=== PATIENT | female | born 1955 | race Caucasian/White ===

== ENCOUNTER → 2019-03-03 | Outpatient (CLI) | payer MEDICARE, OTHER, SELFPAY | PROVIDERS: PCP Internal Medicine; Visit Provider Internal Medicine | DX: Z13.6 Encounter for screening for cardiovascular disorders (principal) | CPT/HCPCS: 76706 ==

== ENCOUNTER 2022-03-08 11:36 | Outpatient (CLI) | payer MEDICARE, OTHER, SELFPAY ==
[2022-03-08 20:18] LABS: Alanine Aminotransferase 29 U/L (6-35); Albumin Level 4.7 g/dL (3.5-5.1); Alkaline Phosphatase 56 U/L (38-126); Anion Gap 13 mmol/L (8-16); Aspartate Amino Transferase 52 U/L (14-36); Bilirubin,Total 0.9 mg/dL (0.2-1.3); Blood Urea Nitrogen 19 mg/dL (7-17); Calcium 9.4 mg/dL (8.4-10.2); Carbon Dioxide 29 mmol/L (22-30); Chloride 95 mmol/L (98-107); Cholesterol 223 mg/dL (0-200); Estimated Glomerular Filt Rate > 60; Glucose 84 mg/dL (65-110); HDL Direct 74 mg/dL; Potassium 3.3 mmol/L (3.4-5.0); Sodium 137 mmol/L (137-145); Triglycerides 60 mg/dL (<150)
[2022-03-08 20:29] LABS: LDL Cholesterol Direct 101 mg/dL
== END 2022-03-08 11:37 | disposition home or self-care (01) ==
PROVIDERS: PCP Family Medicine; Visit Provider Family Medicine
DX: I10 Essential (primary) hypertension (principal); Z13.220 Encounter for screening for lipoid disorders
CPT/HCPCS: 36415; 80053; 80061

== ENCOUNTER 2022-04-11 09:41 | Outpatient (CLI) | payer MEDICARE, OTHER, SELFPAY ==
[2022-04-11 19:12] LABS: Anion Gap 11 mmol/L (8-16); Blood Urea Nitrogen 19 mg/dL (7-17); Calcium 8.8 mg/dL (8.4-10.2); Carbon Dioxide 25 mmol/L (22-30); Chloride 94 mmol/L (98-107); Estimated Glomerular Filt Rate > 60; Glucose 92 mg/dL (65-110); Potassium 3.4 mmol/L (3.4-5.0); Sodium 130 mmol/L (137-145)
== END 2022-04-11 09:42 | disposition home or self-care (01) ==
LOC: ANHGOSHLAB 09:46
PROVIDERS: PCP Family Medicine; Visit Provider Family Medicine
DX: I10 Essential (primary) hypertension (principal)
CPT/HCPCS: 36415; 80048

== ENCOUNTER 2022-04-27 09:43 | Outpatient (CLI) | payer MEDICARE, OTHER, SELFPAY ==
[2022-04-27 17:46] LABS: Anion Gap 9 mmol/L (8-16); Blood Urea Nitrogen 25 mg/dL (7-17); Calcium 9.1 mg/dL (8.4-10.2); Carbon Dioxide 30 mmol/L (22-30); Chloride 100 mmol/L (98-107); Estimated Glomerular Filt Rate > 60; Glucose 95 mg/dL (65-110); Potassium 3.5 mmol/L (3.4-5.0); Sodium 139 mmol/L (137-145)
== END 2022-04-27 09:44 | disposition home or self-care (01) ==
LOC: ANHGOSHLAB 09:45
PROVIDERS: PCP Family Medicine; Visit Provider Family Medicine
DX: I10 Essential (primary) hypertension (principal)
CPT/HCPCS: 36415; 80048

== ENCOUNTER 2024-01-29 01:08 | Day surgery (SDC) | payer MEDICARE, OTHER, SELFPAY ==
[2023-06-21 13:15] VITALS: BMI 23.6
--- NOTE | 2023-07-13 13:30 | P.HP_ITS ---
History of Present Illness History of Present Illness Consent: Risks, benefits, and alternatives have been discussed and questions answered. Patient agrees to proceed with procedure. Chief complaint: neoplasm screening Narrative: Wendy Lockwood is a 68 year old female Who was referred for colon cancer screening. [facility] Family History Family History Father Family history of congestive heart failure Patient's father is Social History Social History Smoking status: Never smoker Second hand tobacco smoke exposure: No Alcohol intake: current Drinks per week: 5 Substance use: never Substance use type: does not use Living arrangements: with family Spiritual care concerns: No Meds Home Medications and Allergies Home Medications Medication Instructions Recorded Confirmed Type meloxicam 15 mg tablet 15 mg PO DAILY 03/08/22 06/21/23 History hydrochlorothiazide 25 mg tablet 25 mg PO DAILY #90 tabs 06/07/22 06/21/23 Rx Allergies Allergy/AdvReac Type Severity Reaction Status Date / Time dog dander Allergy Mild Sneezing Verified 06/21/23 13:14 house dust Allergy Mild Sneezing Verified 06/21/23 13:14 cat dander Allergy Unknown Sneezing Verified 06/21/23 13:14 Penicillins Allergy Unknown Unknown Verified 06/21/23 13:14 Assessment and Plan Assessment and plan (1) Colon cancer screening: Code(s): Z12.11 - Encounter for screening for malignant neoplasm of colon Status: Acute Assessment and Plan: Colonoscopy with possible biopsy or polypectomy or cautery or injection of substances.
[2023-09-23 09:57] VITALS: BMI 23.0
[2024-01-13 11:10] VITALS: BMI 22.6
[2024-01-29 06:54] VITALS: BP 128/71; PULSE 80; RESP 18; TEMP 36.2; O2SAT 99
[2024-01-29] MEDS: LACTATED RINGERS 1,000 ML 150 ML IV CONT (07:15)
--- NOTE | 2024-01-29 07:49 | WPDANESEPPF ---
Anes - Initial Pre Proc Eval Procedure: Operation Date: 01/29/24 08:00 Proposed Procedures p Screening Colonoscopy - Norm Sharma MD Date/Time: 01/29/24 07:49 Surgeon: Nrom Sharma MD Pre Op Diagnosis: neoplasm screening Patient Data Age: 68 Gender: F Height: 1.63 m Weight: 59.6 kg Last Vital Signs Temp 97.2 F L 01/29/24 06:54 Pulse 80 01/29/24 06:54 Resp 18 01/29/24 06:54 BP 128/71 01/29/24 06:54 Pulse Ox 99 01/29/24 06:54 O2 Del Method Room Air 01/29/24 06:54 Allergies Allergy/AdvReac Type Severity Reaction Status Date / Time dog dander Allergy Mild Sneezing Verified 01/29/24 06:53 house dust Allergy Mild Sneezing Verified 01/29/24 06:53 cat dander Allergy Unknown Sneezing Verified 01/29/24 06:53 Penicillins Allergy Unknown Unknown Verified 01/29/24 06:53 Home Medications Medication Instructions Recorded Confirmed Type meloxicam 15 mg tablet 15 mg PO DAILY 03/08/22 01/29/24 History hydrochlorothiazide 25 mg tablet 25 mg PO DAILY #90 tabs 11/29/23 01/29/24 Rx Patient hx anesthesia problems: post op nausea/vomiting Family hx anesthesia problems: none Results Review: All pre-operative results and documents have been reviewed as part of the pre-operative evaluation. [facility] Family History Family History Father Family history of congestive heart failure Patient's father is Social History Social History Smoking status: Never smoker Second hand tobacco smoke exposure: No Alcohol intake: current Drinks per week: 4 Alcohol use details: Socially Substance use: never Substance use type: does not use Do You Feel Safe in your Home?: Yes Lack of Transportation: No Lack of Food: Never True Current Housing: I Have Housing Concerned About Future Housing: No Difficulty Paying Gas/Electric Bills: No Difficulty Paying for Meds: No Currently Unemployed: No Education: Bachelor's Degree Difficulty w/ Childcare or Family Care: No Living arrangements: with family Additional living arrangements comments: With sp Spiritual care concerns: No Agree to blood products: Yes Anes - Eval Final PreProcedure Day of Procedure 01/29/24 07:49 Patient weight: normal Heart: regular rate and rhythm Lungs: clear to auscultation Airway: Mallampati scale class II Neurological: alert and oriented Last oral intake: >/= 8 hours ASA classification: II Emergent: no Anesthetic plan: proceed Anesthesia type and monitoring: general GIVS and standard monitoring Results Review: All pre-operative results and documents have been reviewed as part of the pre-operative evaluation. Informed Consent: The patient's anesthetic plan and its attendant risks and benefits were discussed with the patient/family/POA. Questions were solicited and answers provided to the satisfaction of the patient/family/POA.
--- NOTE | 2024-01-29 07:52 | PM.HPGS ---
History of Present Illness History of Present Illness Consent: Risks, benefits, and alternatives have been discussed and questions answered. Patient agrees to proceed with procedure. Chief complaint: neoplasm screening Narrative: Wendy Lockwood is a 68 year old female here for screening colonoscopy, last one 10 years ago Review of Systems Review of Systems: All systems reviewed & are unremarkable except as noted in HPI and below PMFSH Family History Family History Father Family history of congestive heart failure Patient's father is Social History Social History Smoking status: Never smoker Second hand tobacco smoke exposure: No Alcohol intake: current Drinks per week: 4 Alcohol use details: Socially Substance use: never Substance use type: does not use Do You Feel Safe in your Home?: Yes Lack of Transportation: No Lack of Food: Never True Current Housing: I Have Housing Concerned About Future Housing: No Difficulty Paying Gas/Electric Bills: No Difficulty Paying for Meds: No Currently Unemployed: No Education: Bachelor's Degree Difficulty w/ Childcare or Family Care: No Living arrangements: with family Additional living arrangements comments: With sp Spiritual care concerns: No Agree to blood products: Yes Meds Home Medications and Allergies Home Medications Medication Instructions Recorded Confirmed Type meloxicam 15 mg tablet 15 mg PO DAILY 03/08/22 01/29/24 History hydrochlorothiazide 25 mg tablet 25 mg PO DAILY #90 tabs 11/29/23 01/29/24 Rx Allergies Allergy/AdvReac Type Severity Reaction Status Date / Time dog dander Allergy Mild Sneezing Verified 01/29/24 06:53 house dust Allergy Mild Sneezing Verified 01/29/24 06:53 cat dander Allergy Unknown Sneezing Verified 01/29/24 06:53 Penicillins Allergy Unknown Unknown Verified 01/29/24 06:53 Vital Signs Vital Signs - 24 hr 01/29/24 06:54 Temperature 97.2 F L Pulse Rate 80 Respiratory Rate 18 Blood Pressure 128/71 Pulse Oximetry 99 Oxygen Delivery Room Air Exam Const: General: comfortable and no acute distress HENMT: Face/Nose/Sinus: Normal nares present Eyes: General: appearance normal, both eyes and all related structures Neck: Neck: no JVD Resp: Auscultation: clear to auscultation bilaterally Cardio: Rate: regular rate Rhythm: regular rhythm GI: Inspection: non-distended GI Palp: Yes Soft to palpation Skin: General skin exam: normal color Neuro: General: gait normal Speech: normal speech Extrem: General: normal to inspection Psych: Mental Status: mental status grossly normal Assessment and Plan Assessment and plan (1) Colon cancer screening: Code(s): Z12.11 - Encounter for screening for malignant neoplasm of colon Status: Acute Assessment and Plan: colonoscopy
[2024-01-29 08:12] VITALS: BP 106/61; PULSE 71; RESP 22; O2SAT 97
[2024-01-29 08:22] VITALS: BP 104/57; PULSE 68; RESP 16; O2SAT 97
[2024-01-29 08:32] VITALS: BP 120/76; PULSE 67; RESP 22; O2SAT 98
== END 2024-01-29 08:41 | disposition home or self-care (01) ==
PROVIDERS: PCP Family Medicine; Visit Provider Internal Medicine Gastroenterology
PROC: 0DJD8ZZ Inspection of Lower Intestinal Tract, Via Natural or Artificial Opening Endoscopic (ICD-10-PCS; CPT 45378; principal; 2024-01-29 08:00)
DX: Z12.11 Encounter for screening for malignant neoplasm of colon (principal); K64.8 Other hemorrhoids
CPT/HCPCS: G0121; J2704; J7120

== ENCOUNTER 2024-05-21 10:49 | Outpatient (NON) | payer MEDICARE, OTHER, SELFPAY ==
[2024-05-21 12:51] LABS: IFOB Positive Control Positive; Immunochemical Fecal Occult Bl Negative (N)
== END 2024-05-21 10:50 | disposition home or self-care (01) ==
LOC: ANHGOSHLAB 10:51
PROVIDERS: PCP Family Medicine; Visit Provider Family Medicine
DX: D50.9 Iron deficiency anemia, unspecified (principal)
CPT/HCPCS: 82274

== ENCOUNTER 2024-08-13 07:00 | Outpatient (NON) | payer MEDICARE, OTHER, SELFPAY ==
--- OUTSIDE RECORDS SUMMARY | 2024-08-14 08:47 | XMS_ITS | Referral Summary ---
Author Organization [facility] Address [address] [place] [address] Care Team Providers Care Driver Courier Name Role Phone Gopal Julian DO Primary Care Provider [phone] Allergies Active Allergy Reactions Criticality Noted Date Comments Penicillins Hives Medium Medications hydroCHLOROthiaz nery (HYDRODIURIL) 25 mg tablet Take 25 mg by mouth daily 03/09/2022 Active meloxicam (MOBIC) 15 mg tablet Take 15 mg by mouth daily 04/02/2022 Active Active Problems Problem Noted Date Diagnosed Date Osteoarthritis 04/25/2022 Primary osteoarthritis of right knee 11/10/2021 History of left knee replacement 07/11/2021 Ovarian mass 05/11/2016 Pain of foot 10/06/2012 Immunizations Immunization Administration Dates Next Due Influenza, Quadrivalent, Hig h Dose, Preservative Free, Intrr 03/01/2022,03/01/2021,02/24/2020 Influenza, Trivalent, Adjuva nted, Intramuscular 03/25/2019 Pneumococcal Conjugate PCV 13 04/19/2019 Pneumococcal Polysaccharide PPV23 03/26/2020 Social History Tobacco Use Types Packs/Day Years Used Date Smoking Tobacco: Never Smokeless Tobacco: Never Tobacco Cessation:Counseling Given: Not Answered Personal Safety Answer Date Recorded Getting School Help Needed Not on file 06/08 Comments Unknown Sex and Gender Information Value Date Recorded Sex Assigned at Not on file 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 Gender Identity Not on file Sexual Orientation Not on file Last Filed Vital Signs Vital Sign Reading Time Taken Comments Blood Pressure 157/82 08/14/2022 2:08 PM CDT Pulse 70 08/14/2022 2:08 PM CDT Temperature - - Respiratory Rate - - Oxygen Saturation - - Inhaled Oxygen Concentration - - Weight 60.3 kg (133 lb) 08/14/2022 2:08 PM CDT Height 162.6 cm (5' 4 ) 08/14/2022 2:08 PM CDT Body Mass Index 22.83 08/14/2022 2:08 PM CDT Plan of Treatment Not on file Insurance MEDICARE [facility] [place] [address] Care Teams Driver Courier Relationship Specialty Start Date End Date Gopal Julian DO PCP - General Family Medicine 04/25/22
--- OUTSIDE RECORDS SUMMARY | 2024-08-14 08:47 | XMS_ITS | Continuity of Care Document ---
Author Organization [facility] Address [id number] [place] [address] [address] [place] [address] Phone Care Team Providers Care Chief Of Harbor Patrol Name Role Phone Carrasquillo OD, [place] Unavailable Unavailable Advance Directives Directive Yes / No Effective Date File Name No Information Encounters Encounter Description Practice Location Reason(s) For Visit Diagnoses Date Provider Providers Copied on Encounter [facility], [id number] [place] [address] [address], [place], [place], [id number], [place] tel:[phone] [facility] (formerly [facility]) No Information Mar-1 2-200 3 Carrasquillo OD [place]. [address] , [address], [place], [address], [place]. tel:[phone] Family History Family Member Type Diagnosis Age At Onset No Information Payers Payer name Insurance type Covered democrat ID Authoriza tion(s) No Information Social History Type Description Quantity Date Captured Comments Sex Female Smoking Status No Information Chief Complaint And Reason For Visit No Information Reason For Referral Reason For Referral No Information History Of Present Illness Encounter Date Complaint History Of Prese nt Illness No Information Functional Status Date Functional Assessmen t No Information Instructions Date Instruction Additional Infor mation No Information Assessments Type Assessment Date No Information Patient Care Teams Name Effective Dates (start - stop) Status Members No Information
--- OUTSIDE RECORDS SUMMARY | 2024-08-14 08:47 | XMS_ITS | Clinical Summary ---
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 Gender Identity Not on file Sexual Orientation Not on file Obstetrics History Last Filed Vital Signs Vital Sign Reading [...] 08/14/2022 2:08 PM CDT Plan of Treatment Health Maintenance Due Date Last Done Comments Breast Cancer Screening-Mammogram 1953 Colon Cancer Screening-Colonoscopy 1955 Depression Screening 1953 Fall Risk Assessment 1953 Hepatitis C Screening 1953 Osteoporosis Screening-Bone Density Scan 1953 DTaP/Tdap/Td Vaccine (1 - Tdap) 1964 Hepatitis B Screening 1971 Zoster Vaccine (1 of 2) 2003 Well Visit 65+ 2018 Covid-19 Vaccine (3 - 2023-2 5 season) 2024 08/06/2020, 07/15/2020 Influenza Vaccine (#1) 2024 2, 03/01/2021, 02/24/2020, Additional history exists Pneumococcal vaccine 65+ Completed 03/26/2020, 04/03 Insurance MEDICARE [facility] [place] [address] [place] [address] Care Teams Gate Shear Operator Relationship Specialty Start Date End Date Gopal Julian DO PCP - General Family Medicine 04/25/22
--- OUTSIDE RECORDS SUMMARY | 2024-08-14 08:47 | XMS_ITS | Encounter Summary ---
Author Organization [facility] Address [address] [place] [address] Care Team Providers Care Segment Producer Name Role Phone Gopal Julian DO Primary Care Provider [phone] Gopal Julian DO Primary Care Provider [phone] Encounter Details Date Type Department Care Team (Late st Contact Info) Description 07/05/2022 Lab Requisition [facility] [address] [place] [address] Luz Alarcon MD [address] [facility] [place] [address] Social History Tobacco Use Types Packs/Day Years Used Date Smoking Tobacco: Never Smokeless Tobacco: Never Alcohol Use Standard Drinks/Week Comments Yes 3 (1 standard drink = 0.6 oz pur e alcohol) social Sex and Gender Information Value Date Recorded Sex Assigned at Not on file Gender Identity Not on file Sexual Orientation Not on file documented as of this encounter Plan of Treatment Not on file documented as of this encounter Procedures Procedure Name Priority Date/Time Associated Diagnosis Comments DERMATOPATHOLOGY Routine 07/04/2022 12:0 0 AM SLUMBER ROOM ATTENDANT documented in this encounter Results * DERMATOPATHOLOGY (07/04/2022 12:00 AM SLUMBER ROOM ATTENDANT) Case Report Dermatopathology Report Case: [id number] Authorizing Provider: Luz Alarcon MD Collected: 07/04/2022 12:00 AM Ordering Location: [facility] Received: 07/05/2022 02:22 PM Pathologist: Antonette Caballero MD Specimen: Skin, right clavicular skin-Triangulation: 2 cm to sternal notch 3 4:30 PM [facility] Final Diagnosis Specimen A. SKIN, right clavicular skin-Triangulation: 2 cm to sternal notch: ULCER WITH SUPERFICIAL DERMAL NECROSIS, IMPETIGINIZED (L98.499) HEALING SKIN CHANGES (L90.5) (see microscopic description) 3 4:30 PM [facility] Clinical History 1.5 cm eroded plaque. Neoplasm of uncertain behavior vs SCC 3 4:30 PM [facility] Gross Description Specimen A: Received is one formalin filled container labeled with the patient's name and designated right clavicular skin-Triangulation: 2 cm to sternal notch. The specimen consists of a shave biopsy measuring 7x6x1 mm. Jar 0. 3 4:30 PM [facility] Microscopic Description Specimen A. SKIN, right clavicular skin-Triangulation: 2 cm to sternal notch: There is an ulcer, beneath which there are vascular proliferation, fibroblasts, and an edematous stroma. Bacteria are seen within the overlying inflamed serum scale crust. There is hyperplasia of the adjacent epidermis. Additional deeper sections were obtained and reviewed. COMMENT: Given the superficial nature of the biopsy specimen, a deeper dermal process cannot be excluded. 3 4:30 PM [facility] Disclaimer An external and internal positive and negative controls are appropriate for the histochemical, immunohistochemical and immunofluorescence stain(s) in this case (if any), except where stated explicitly. The performance characteristics of the stain(s) cited in this report were developed and its performance characteristic determined by the Dermatopathology Laboratory at [facility], directed by Dr. Pelon Gonzalez. These tests need not be, and therefore are not, approved by the [place] Food and Drug Administration. The tests are used for clinical purposes. Billing Codes Specimen Charges Stain Charges 67396 1 3 4:30 PM [facility] Embedded Images 3 4:30 PM [facility] Pathology/Cytolog y TISSUE SPECIMEN FROM SKIN / Unknown 07/04/2022 07/05/2022 2:22 PM SLUMBER ROOM ATTENDANT Luz Alarcon MD LAB - PATHOLOGY/[facility] DERMATOPATHOLOGY LABORATORY [facility] - Department of Dermatology [address], [address] [phone] documented in this encounter Visit Diagnoses Not on filedocumented in this encounter Care Teams Segment Producer Relationship Specialty Start Date End Date Gopal Julian DO [address] [place] [address] PCP - General Family Medicine 02/12/24 03/24/24 Gopal Julian DO [address] [place] [phone] PCP - General Family Medicine 03/25/24 documented as of this encounter
--- OUTSIDE RECORDS SUMMARY | 2024-08-14 08:47 | XMS_ITS | Referral Summary ---
Author Organization [facility] Address [address] [facility] [place] [address] Care Team Providers Care Emt/Dispatcher Name Role Phone Torstenmayco Gopal SOTO Primary Care Provider Source Comments [facility],non-owned Affiliates and Associated Physician Practices is amultiple site organization consisting of ambulatory clinics and hospital sitesin [place], [place], [place] and [place]. This disclosure is being madepursuant to the Care Everywhere program and may not contain all information available regarding this patient. Last updated 18.[facility] Encounters Date Type Department Care Team Description 06/30/[address], [address] [address] Winston Plunkett MD Refill Request 06/08/[address] [phone] Winston Plunkett MD Question from Last 3 Months Allergies Active Allergy Reactions Criticality Noted Date Comments Penicillins Itching Low 05/11/2016 Patient reports itching as a baby Medications * Be aware that medications may not be up to date on this document. Alwaysverify current medications with the patient. Medication Sig Dispensed Refills Start Date End Date Status hydroCHLOROthiazide (HYDRODIURIL) 25 MG tablet Take 1 (one) tablet by mouth once daily 05/04/2016 Active meloxicam (Mobic) 15 MG tablet Take 1 (one) tablet by mouth once daily 04/02/2022 Active acetaminophen (Tylenol) 500 MG capsule Take 2 (two) capsules by mouth 3 times daily Take for ten days then as needed. 04/01/2024 Active omeprazole (PriLOSEC) 20 MG capsule Take 1 (one) capsule by mouth daily before breakfast for 42 days 42 capsule 04/01/2024 Active ondansetron (Zofran) 4 MG tablet Take 1 (one) tablet by mouth every 6 hours as needed for Nausea/Vomiting 20 tablet 04/02/2024 Active Ferrous Sulfate (Iron Supplement) 300 MG/6.8ML SOLN Active oxyCODONE, immediate release, (Roxicodone) 10 MG tabletIndications:P ostoperative pain Take 0.5 (one-half) tablet to 1 (one) tablet by mouth every 4 hours as needed for Pain 42 tablet 04/23/2024 Active Active Problems Problem Noted Date Diagnosed Date Primary osteoarthritis of right knee 11/10/2021 History of left knee replacement 07/11/2021 Primary osteoarthritis of both knees 11/15/2020 Ovarian mass 05/11/2016 Immunizations Name Administration Dates Next Due INFLUENZA VACCINE, ADJUVANTE D, TRIV. (FLUAD TRIVALENT; 65Y+) (AIIV3) 03/25/2019 PNEUMOCOCCAL PPSV23 03/26/2020 Pneumococcal Pcv13 Conj 04/19/2019 Social History Tobacco Use Types Packs/Day Years Used Date Smoking Tobacco: Never Smokeless Tobacco: Never Alcohol Use Standard Drinks/Week Comments Yes 3 (1 standard drink = 0.6 oz pur e alcohol) social AUDIT-C Answer Date Recorded Q1: How often do you have a drink containing alcohol? Monthly or less 04/01/2024 Q2: How many drinks containi ng alcohol do you have on a typical day when you are drinking? Patient does not drink Q3: How often do you have si x or more drinks on one occasion? Never 04/01/2024 PHQ-2 Answer Date Recorded Patient Health Questionnaire-2 Score 1 04/16/2024 Hunger Vital Sign Answer Date Recorded Within the past 12 months, y ou worried that your food would run out before you got the money to buy more. Never true 04/01/20 24 Within the past 12 months, t he food you bought just didn't last and you didn't have money to get more. Never true 04/01/2024 Sex and Gender Information Value Date Recorded Sex Assigned at Not on file Gender Identity Not on file Sexual Orientation Not on file Last Filed Vital Signs Vital Sign Reading Time Taken Comments Blood Pressure 132/89 04/02/2024 12:03 PM CDT Pulse 76 04/02/2024 12:03 PM CDT Temperature 36.7 C (98.1 F) 04/02/2024 7:54 AM CDT Respiratory Rate 17 04/02/2024 7:54 AM CDT Oxygen Saturation 93% 04/02/2024 12: 03 PM CDT Inhaled Oxygen Concentration - - Weight 59.3 kg (130 lb 12.8 oz) 04/01/2024 6:54 AM CDT Height 162.6 cm (5' 4 ) 04/01/2024 6:54 AM CDT Body Mass Index 22.45 04/01/2024 6:54 AM CDT Plan of Treatment Not on file Medical Devices Implanted Type Area Roller Machine Operator Device Identifier Shelf Expiration Date Model / Serial / Lot Cmnt Bone Djo Srg Cblt 40gm Hvisc Strl Implanted:Qty: 1 on 04/06/2021 by Winston Plunkett MD at [facility] Left: Knee [employer] 07/22/2022 [id number] / / [id number] Tray Tib 71mm Kn Cocr I Beam Implanted:Qty: 1 on 04/06/2021 by Winston Plunkett MD at [facility] Left: Knee [employer] 01/19/2031 [id number] / / [id number] Cmpnt Ptlr 28mm 1 Pg Wire Ascnt Arcm Kn Implanted:Qty: 1 on 04/06/2021 by Winston Plunkett MD at [facility] Left: Knee [employer] 02/20/2026 [id number] / / [id number] Cmpnt Fem Kn Lt Cr Cmnt Prm Vngrd Intlk Implanted:Qty: 1 on 04/06/2021 by Winston Plunkett MD at [facility] Left: Knee [employer] 10/24/2030 [id number] / / [id number] Brng [id number] Vngrd Arcm Kn Ant Stab Implanted:Qty: 1 on 04/06/2021 by Winston Plunkett MD at [facility] Left: Knee [employer] 03/10/2026 [id number] / / [id number] Brng [id number] Vngrd Vivacit-E Kn Ant Stab Implanted:Qty: 1 on 04/01/2024 by Winston Plunkett MD at [facility] Right: Knee [employer] 10/05/2028 [id number] / / [id number] Tray Tib 71mm Kn Cocr I Beam Implanted:Qty: 1 on 04/01/2024 by Winston Plunkett MD at [facility] Right: Knee [employer] 01/28/2034 [id number] / / [id number] Cmpnt Fem Kn Rt Cr Cmnt Prm Vngrd Intlk Implanted:Qty: 1 on 04/01/2024 by Winston Plunkett MD at [facility] Right: Knee [employer] 12/31/2033 [id number] / / [id number] Cmpnt Ptlr Std 28mm 3 Pg Kn Ser A Implanted:Qty: 1 on 04/01/2024 by Winston Plunkett MD at [facility] Right: Knee [employer] 02/27/2029 [id number] / / [id number] Cmnt Bone Plc R 40gm Grn Implanted:Qty: 1 on 04/01/2024 by Winston Plunkett MD at [facility] Right: Knee [employer] 06/02/2026 [id number] / / [id number] Advance Directives Documents on File Type Date Recorded 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
--- OUTSIDE RECORDS SUMMARY | 2024-08-14 08:47 | XMS_ITS | Patient Health Summary ---
Author Organization [facility] Address [address] [place] [address] Care Team Providers Care Trim Installer Name Role Phone Torstenmyaco Gopal SOTO Primary Care Provider [phone] Note from [facility],non-owned Affiliates and Associated Physician Practices is amultiple site organization consisting of ambulatory clinics and hospital sitesin [place], [place], [place] and [place]. This disclosure is being madepursuant to the Care Everywhere program and may not contain all information available regarding this patient. Last updated 18.[facility] Allergies * Penicillins(Itching) -Low Criticality Medications * Be aware that medications may not be up to date on this document. Alwaysverify current medications with the patient. * hydroCHLOROthiazide (HYDRODIURIL) 25 MG tablet(Started 05/04/2016) Take 1 (one) tablet by mouth once daily * meloxicam (Mobic) 15 MG tablet(Started 04/02/2022) Take 1 (one) tablet by mouth once daily * acetaminophen (Tylenol) 500 MG capsule(Started 04/01/2024) Take 2 (two) capsules by mouth 3 times daily Take for ten days then as needed. * omeprazole (PriLOSEC) 20 MG capsule(Started 04/01/2024) Take 1 (one) capsule by mouth daily before breakfast for 42 days * ondansetron (Zofran) 4 MG tablet(Started 04/02/2024) Take 1 (one) tablet by mouth every 6 hours as needed for Nausea/Vomiting * Ferrous Sulfate (Iron Supplement) 300 MG/6.8ML SOLN * oxyCODONE, immediate release, (Roxicodone) 10 MG tablet(Started 04/23/2024) Take 0.5 (one-half) tablet to 1 (one) tablet by mouth every 4 hours as needed for Pain Active Problems Problem Noted Date Diagnosed Date Primary osteoarthritis of right knee 11/10/2021 History of left knee replacement 07/11/2021 Primary osteoarthritis of both knees 11/15/2020 Ovarian mass 05/11/2016 Immunizations * INFLUENZA VACCINE, ADJUVANTED, TRIV. (FLUAD TRIVALENT; 65Y+) (AIIV3)(Given 03/25/2019) * PNEUMOCOCCAL PPSV23(Given 03/26/2020) * Pneumococcal Pcv13 Conj(Given 04/19/2019) Social History Tobacco Use Types Packs/Day Years [...] Mass Index 22.45 04/01/2024 6:54 AM CDT Medical Devices Implanted Type Area Clearing Hand Device Identifier Shelf Expiration Date Model / Serial / Lot Cmnt Bone Djo Srg Cblt 40gm Hvisc Strl Implanted:Qty: 1 on 04/06/2021 by Winston Plunkett MD at [facility] Left: Knee [employer] 07/22/2022 [id number] / / [id number] Tray Tib 71mm Kn Cocr I Beam Implanted:Qty: 1 on 04/06/2021 by Winston Plunkett MD at [facility] Left: Knee [employer] 01/19/2031 [id number] / / [id number] Cmpnt Ptlr 28mm 1 Pg Wire Ascnt Arcm Kn Implanted:Qty: 1 on 04/06/2021 by Winston Plunkett MD at [facility] Left: Knee [employer] 02/20/2026 [id number] / / [id number] Cmpnt Fem Kn Lt Cr Cmnt Prm Vngrd Intlk Implanted:Qty: 1 on 04/06/2021 by Winston Plunkett MD at [facility] Left: Knee [employer] 10/24/2030 [id number] / / [id number] Brng [id number] Vngrd Arcm Kn Ant Stab Implanted:Qty: 1 on 04/06/2021 by Winston Plunkett MD at [facility] Left: Knee [employer] 03/10/2026 [id number] / / [id number] Brng [id number] Vngrd Vivacit-E Kn Ant Stab Implanted:Qty: 1 on 04/01/2024 by Winston Plunkett MD at [facility] Right: Knee [employer] 10/05/2028 [id number] / / [id number] Tray Tib 71mm Kn Cocr I Beam Implanted:Qty: 1 on 04/01/2024 by Winston Plunkett MD at [facility] Right: Knee [employer] 01/28/2034 [id number] / / [id number] Cmpnt Fem Kn Rt Cr Cmnt Prm Vngrd Intlk Implanted:Qty: 1 on 04/01/2024 by Winston Plunkett MD at [facility] Right: Knee [employer] 12/31/2033 [id number] / / [id number] Cmpnt Ptlr Std 28mm 3 Pg Kn Ser A Implanted:Qty: 1 on 04/01/2024 by Winston Plunkett MD at [facility] Right: Knee [employer] 02/27/2029 [id number] / / [id number] Cmnt Bone Plc R 40gm Grn Implanted:Qty: 1 on 04/01/2024 by Winston Plunkett MD at [facility] Right: Knee [employer] 06/02/2026 [id number] / / [id number] Procedures * XR KNEE RIGHT 3VW(Performed 05/15/2024) Performed for Aftercare following right knee joint replacement surgery * NEURAXIAL BLOCK(Performed 04/01/2024) * AR TOTAL KNEE REPLACEMENT(Performed 04/01/2024) * EKG 12-LEAD(Performed 02/17/2024) Performed for Preoperative examination * RETIC COUNT(Performed 02/17/2024) Performed for Preoperative examination * IRON + TRANSFERRIN PANEL(Performed 02/17/2024) Performed for Preoperative examination * FERRITIN(Performed 02/17/2024) Performed for Preoperative examination * VITAMIN B12 FOLATE PANEL(Performed 02/17/2024) Performed for Preoperative examination * CBC W AUTO DIFFERENTIAL(Performed 02/17/2024) Performed for Preoperative examination * COMPREHENSIVE METABOLIC PANEL(Performed 02/17/2024) Performed for Preoperative examination * XR KNEE RIGHT 3VW(Performed 08/26/2023) Performed for Primary osteoarthritis of right knee * DERMATOPATHOLOGY(Performed 07/04/2022) * XR KNEE RIGHT 3VW(Performed 11/09/2021) Performed for Right knee pain, unspecified chronicity * XR KNEE LEFT 3VW(Performed 05/18/2021) Performed for Aftercare following left knee joint replacement surgery * NEURAXIAL BLOCK(Performed 04/06/2021) * ARTHROPLASTY TOTAL KNEE(Performed 04/06/2021) * EKG 12-LEAD(Performed 03/06/2021) Performed for Pre-op evaluation * XR KNEE BILAT 2VW OR LESS(Performed 11/14/2020) Performed for Chronic pain of both knees * CANCER ANTIGEN (CA)125 BLOOD(Performed 06/16/2019) Performed for Ovarian mass, right, Ovarian mass, left * US TRANSVAGINAL NON OB(Performed 04/16/2019) Performed for Ovarian mass, right, Ovarian mass, left * US TRANSVAGINAL NON OB(Performed 01/12/2019) Performed for Ovarian mass * CANCER ANTIGEN (CA)125 BLOOD(Performed 06/11/2018) Performed for Ovarian mass * US TRANSVAGINAL NON OB(Performed 06/11/2018) Performed for Ovarian mass * PAP IG LB(Performed 06/11/2018) Performed for Encounter for gynecological examination with abnormal finding * OCCULT BLOOD FECES 1-3 SCREEN POINT OF CARE (AMB)(Performed 06/11/2018) Performed for Colon cancer screening * CANCER ANTIGEN (CA)125 BLOOD(Performed 01/31/2017) Performed for Ovarian mass * CULTURE URINE(Performed 01/31/2017) Performed for Pelvic pressure in female * US TRANSVAG ONLY(Performed 01/31/2017) Performed for Ovarian mass * PAP IG LB + HPV HR(Performed 05/11/2016) Performed for Well woman exam * US TRANSVAG ONLY(Performed 05/11/2016) Performed for Ovarian mass * OCCULT BLOOD FECES 1-3 SCREEN POC (AMB) STL(Performed 05/11/2016) Performed for Colon cancer screening * GROSS + MICRO EXAM(Performed 08/31/2004) Results * XR Knee Right 3Vw (05/15/2024 10:32 AM ASSISTANT FAMILY TEACHER) Only the most recent of3 resultswithin the time period is included. Narrative [facility] [address] - 05/15/2024 10:33 AM ASSISTANT FAMILY TEACHER Please see progress note in Epic for results. Winston Plunkett MD DIAGNOSTIC IMAGING O RDERATOM [facility] [address] * Neuraxial Block (04/01/2024 11:19 AM CDT) Luz Wood DO - 04/01/2024 11:19 AM CDT River Ly APRN-CRNA 04/01/2024 11:19 AM Neuraxial Block Note Pre-Procedure: Procedure Name: Neuraxial Block Patient Location: OR Anticoagulation/ Anti-thrombosis status confirmed? Yes Monitors: continuous pluse ox Patient Condition: sedated, meaningful contact maintained throughout procedure Procedure: Block Type: Spinal Prep: Betadine Approach: midline Spinal Block: Needle Type: spinal needle Needle Gauge: 25 Needle Length: 90 mm Placement Site: L3-4 Number of Attempts: 1 Degree of difficulty: none Procedure Tolerance: tolerated well Staff: Anesthesia Provider: River Ly APRN-CRNA - performed the procedure Luz Whitney DO GENERAL ANESTHESIA O RDERABLES * EKG 12-LEAD (02/17/2024 2:11 PM CDT) Only the most recent of2 resultswithin the time period is included. Ventricular Rate 76 BPM [facility] Atrial Rate 76 BPM [facility] P-R Interval 190 ms [facility] QRS Duration ms 74 ms [facility] Q-T Interval ms 370 ms [facility] QTC Calculation (Bezet) 416 ms [facility] Calculated P [place] 45 degrees [facility] Calculated R [place] 28 degrees [facility] Calculated T [place] 66 degrees [facility] Interpretation EKG Normal sinus rhythm Normal ECG When compared with ECG of 06-MAR-2021 09:59, No significant change was found Confirmed by MARCIAL BAIG, MICAELA ([id number]) on 02/18/2024 11:13:40 AM [facility] 02/17/2024 2:11 PM CDT 02/18/2024 11:13 AM CDT Luz Whitney DO ECG ORDERABLES [facility] * RETIC COUNT (02/17/2024 2:05 PM CDT) Reticulocyte Percent 1.12 0.50 - 2.40 % 02/17/2024 2:28 PM CDT [facility] Reticulocyte Absolute 0.0419 0.0200 - 0.1100 x10E6/uL 02/17/2024 2:28 PM CDT [facility] Ret-HE 30.2 29.0 - 37.9 pg 02/17/2024 2:28 PM CDT [facility] Immature Reticulocyte Fraction 8.1 1.8 - 15.2 % 02/17/2024 2:28 PM CDT [facility] Blood BLOOD SPECIMEN / Unknown Venipuncture / Unknown 02/17/2024 2:05 PM CDT 02/17/2024 2:17 PM CDT Sil Noonan APRN-LAP WINDING MACHINE OPERATOR LAB - HEMATOLOGY ORDERABLES [facility] [address] [place] [address] * (ABNORMAL) CBC W AUTO DIFFERENTIAL (02/17/2024 2:05 PM CDT) WBC 9.1 4.0 - 10.7 x10E9/L 02/17/2024 2:17 PM CDT [facility] RBC Count 3.69(L) 3.90 - 5.20 x10E12/L 02/17/2024 2:17 PM CDT [facility] Hemoglobin 10.8(L) 11.9 - 15.8 g/dL 02/17/2024 2:17 PM CDT [facility] Hematocrit 32.7(L) 34.8 - 46.1 % 02/17/2024 2:17 PM CDT [facility] MCV 88.6 80.0 - 98.0 fL 02/17/2024 2:17 PM CDT [facility] MCH 29.3 26.7 - 33.6 pg 02/17/2024 2:17 PM CDT [facility] MCHC 33.0 31.7 - 36.3 g/dL 02/17/2024 2:17 PM CDT [facility] RDW-CV 11.9 11.3 - 14.8 % 02/17/2024 2:17 PM CDT [facility] Platelet Count 452(H) 150 - 420 x10E9/L 02/17/2024 2:17 PM CDT [facility] MPV 9.2 7.8 - 11.4 fL 02/17/2024 2:17 PM CDT [facility] Neutrophil % 64.4 41.0 - 74.0 % 02/17/2024 2:17 PM CDT [facility] Lymphocyte % 19.8 17.0 - 47.0 % 02/17/2024 2:17 PM CDT [facility] Monocyte % 11.1(H) 3.0 - 11.0 % 02/17/2024 2:17 PM CDT [facility] Eosinophil % 4.1 0.0 - 7.0 % 02/17/2024 2:17 PM CDT [facility] Basophil % 0.4 0.0 - 1.6 % 02/17/2024 2:17 PM CDT [facility] Immature Granulocytes % 0.2 0.0 - 1.0 % 02/17/2024 2:17 PM CDT [facility] Neutrophil Absolute 5.83 1.60 - 7.50 x10E9/L 02/17/2024 2:17 PM CDT [facility] Lymphocyte Absolute 1.80 1.00 - 4.40 x10E9/L 02/17/2024 2:17 PM CDT [facility] Monocyte Absolute 1.01(H) 0.15 - 1.00 x10E9/L 02/17/2024 2:17 PM CDT [facility] Eosinophil Absolute 0.37 0.00 - 0.60 x10E9/L 02/17/2024 2:17 PM CDT [facility] Basophil Absolute 0.04 0.00 - 0.13 x10E9/L 02/17/2024 2:17 PM CDT [facility] Blood BLOOD SPECIMEN / Unknown Venipuncture / Unknown 02/17/2024 2:05 PM CDT 02/17/2024 2:12 PM CDT Sil Noonan FORCE DISPATCHER-LAP WINDING MACHINE OPERATOR LAB - HEMATOLOGY ORDERABLES [facility] [address] [place] [address] * (ABNORMAL) COMPREHENSIVE METABOLIC PANEL (02/17/2024 2:05 PM CDT) [facility] Glucose 101 70 - 105 mg/dL 02/17/2024 2:30 PM CDT [facility] Sodium 139 136 - 145 mmol/L 02/17/2024 2:30 PM CDT [facility] Potassium 3.7 3.5 - 5.1 mmol/L 02/17/2024 2:30 PM CDT [facility] Chloride 102 98 - 107 mmol/L 02/17/2024 2:30 PM CDT [facility] CO2 27 22 - 29 mmol/L 02/17/2024 2:30 PM CDT [facility] Calcium 9.6 8.4 - 10.4 mg/dL 02/17/2024 2:30 PM CDT [facility] Anion Gap 10 6 - 16 mmol/L 02/17/2024 2:30 PM CDT [facility] BUN 19 7 - 26 mg/dL 02/17/2024 2:30 PM CDT [facility] Creatinine 0.79 0.57 - 1.11 mg/dL 02/17/2024 2:30 PM CDT [facility] Alkaline Phosphatase 83 40 - 150 U/L 02/17/2024 2:30 PM CDT [facility] ALT 10 0 - 55 U/L 02/17/2024 2:30 PM CDT [facility] AST 15 5 - 34 U/L 02/17/2024 2:30 PM CDT [facility] Protein Total 7.1 6.4 - 8.3 gm/dL 02/17/2024 2:30 PM CDT [facility] Albumin 3.4 3.4 - 5.0 gm/dL 02/17/2024 2:30 PM CDT [facility] Bilirubin Total 0.3 0.2 - 1.2 mg/dL 02/17/2024 2:30 PM CDT [facility] eGFR by CKD-EPI 80(L) >=90 mL/min/1.7 3 m2 02/17/2024 2:30 PM CDT [facility] Blood BLOOD SPECIMEN / Unknown Venipuncture / Unknown 02/17/2024 2:05 PM CDT 02/17/2024 2:12 PM CDT Sil Noonan APRN-LAP WINDING MACHINE OPERATOR LAB - CHEMISTRY O RDERABLES Performing Organization Address City/[facility]/ZIP Co de Phone Number [facility] [id number] [place] [id number] * VITAMIN B12 FOLATE PANEL (02/17/2024 2:05 PM CDT) Pathologist [facility] Vitamin B12 302 213 - 816 pg/mL 02/17/2024 3:20 PM CDT [facility] Folate 9.7 7.0 - 31.4 ng/mL 02/17/2024 3:20 PM CDT [facility] Blood BLOOD SPECIMEN / Unknown Venipuncture / Unknown 02/17/2024 2:05 PM CDT 02/17/2024 2:17 PM CDT Sil Noonan [facility] LAB - CHEMISTRY O RDERABLES Performing Organization Address [facility] Co de Phone Number [facility] [address] [place] [phone] * (ABNORMAL) IRON + TRANSFERRIN PANEL (02/17/2024 2:05 PM CDT) [facility] Iron 22(L) 40 - 150 ug/dL 02/17/2024 2:47 PM CDT [facility] Transferrin 176 174 - 382 mg/dL 02/17/2024 2:47 PM CDT [facility] TIBC Calculated 220(L) 240 - 450 ug/dL 02/17/2024 2:47 PM CDT [facility] Iron Saturation % 10(L) 20 - 50 % 02/17/2024 2:47 PM CDT [facility] Blood BLOOD SPECIMEN / Unknown Venipuncture / Unknown 02/17/2024 2:05 PM CDT 02/17/2024 2:17 PM CDT Sil Noonan [facility] LAB - CHEMISTRY O RDERABLES Performing Organization Address City/[facility]/ZIP Co de Phone Number [facility] [address] [place] [phone] * (ABNORMAL) FERRITIN (02/17/2024 2:05 PM CDT) Ferritin 220(H) 5 - 204 ng/mL 02/17/2024 3:20 PM CDT [facility] Blood BLOOD SPECIMEN / Unknown Venipuncture / Unknown 02/17/2024 2:05 PM CDT 02/17/2024 2:17 PM CDT Sil Noonan FORCE DISPATCHER-LAP WINDING MACHINE OPERATOR LAB - CHEMISTRY O RDERABLES [facility] [address] [place] [address] * DERMATOPATHOLOGY (07/04/2022 12:00 AM ASSISTANT FAMILY TEACHER) Case Report Dermatopathology Report Case: [id number] Authorizing Provider: Luz Alarcon MD Collected: 07/04/2022 12:00 AM Ordering Location: [facility] Lab Received: 07/05/2022 02:22 PM Pathologist: Antonette Caballero MD Specimen: Skin, right clavicular skin-Triangulation: 2 cm to sternal notch 3 4:30 PM [facility] Final Diagnosis Specimen A. 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 Neoplasm of uncertain behavior vs SCC 3 4:30 PM [facility] Gross Description Specimen A: Received is one formalin filled container labeled with the patient's name and designated right clavicular skin-Triangulation: 2 cm to sternal notch. The specimen consists of a shave biopsy measuring 7x6x1 mm. Jar 0. 3 4:30 PM [facility] Microscopic Description Specimen A. SKIN, [...] process cannot be excluded. 3 4:30 PM [facility] Disclaimer An external and internal positive and negative controls are appropriate for the histochemical, immunohistochemical and immunofluorescence stain(s) in this case (if any), except where stated explicitly. The performance characteristics of the stain(s) cited in this report were developed and its performance characteristic determined by the Dermatopathology Laboratory at [facility], directed by Dr. Pelon Gonzalez. These tests need not be, and therefore are not, approved by the [place] Food and Drug Administration. The tests are used for clinical purposes. Billing Codes Specimen Charges Stain Charges 92540 1 3 4:30 PM [facility] Embedded Images 3 4:30 PM ASSISTANT FAMILY TEACHER DERMATOPATHOLOGY LABORATORY Pathology/Cytolog y TISSUE SPECIMEN FROM SKIN / Unknown 07/04/2022 07/05/2022 2:22 PM ASSISTANT FAMILY TEACHER Luz Alarcon MD LAB - PATHOLOGY/CYTO LOGY ORDERABLES DERMATOPATHOLOGY LABORATORY [facility] - Department of Dermatology [address] [phone] * XR KNEE LEFT 3VW (05/18/2021 3:56 PM ASSISTANT FAMILY TEACHER) Anatomical Region Laterality Modality Lower Extremity Computed Radiogr aphy Narrative 05/18/2021 3:58 PM ASSISTANT FAMILY TEACHER Jacquelyn Segovia RT(R) 06/07/2021 4:12 PM See progress notes for results Viki Hewitt PA-C DIAGNOSTIC IM AGING ORDERABLES * Neuraxial Block (04/06/2021 11:44 AM CDT) Narrative Wendy Loaiza APRN-SENIOR SQL SERVER DEVELOPER - 04/06/2021 11:44 AM CDT Wendy Loaiza APRN-SENIOR SQL SERVER DEVELOPER 04/06/2021 11:46 AM Neuraxial Block Note Pre-Procedure: Procedure Name: Neuraxial Block Patient Location: OR Indications: surgical anesthesia Pre-Anesthetic Checklist: Patient identified, IV Checked, Risks and benefits discussed, Surgical consent verified, Monitors and equipment, Site examined, Pre-op evaluation done, Time-out performed, Informed consent obtained, Questions answered/anesthesia questions answered and Allergies reviewed Anticoagulation/ Anti-thrombosis status confirmed? Yes Monitors: BP and continuous pluse ox Patient Condition: awake Patient Sedated? Yes Sedation Type: moderate Procedure: Block Type: Spinal Prep: Betadine Sterile Field: mask, cap/hat, sterile established and sterile gloves Approach: midline Skin was localized? Yes Spinal Block: Needle Type: spinal needle Needle Gauge: 25 Needle Length: 90 mm Placement Site: L3-4 Number of Attempts: 1 CSF: free flow Degree of difficulty: none Procedure Tolerance: tolerated well Motor Blockade: Yes Vital Signs: Vital signs monitored and stable throughout. See anesthesia record for details. Staff: Anesthesia Provider: Wendy Loaiza APRN-CRNA - performed the procedure Edward Meyers MD GENERAL ANESTHESIA O RDERABLES * XR KNEE BILAT ONE OR TWO VIEWS (11/14/2020 4:46 PM CDT) Anatomical Region Laterality Modality Lower Extremity Computed Radiogr aphy Narrative 11/14/2020 4:55 PM CDT Jacquelyn Segovia, RT(R) 11/30/2020 11:51 AM See progress notes for results Winston Plunkett MD DIAGNOSTIC IMAGING O RDERABLES * CANCER ANTIGEN (CA)125 BLOOD (06/16/2019 11:19 AM ASSISTANT FAMILY TEACHER) Only the most recent of3 resultswithin the time period is included. CA 125 4.6 0.0 - 38.1 U/mL [facility] INSURANCE BILL Comment: [facility] [employer] Electrochemiluminescence Immunoassay (ECLIA) . Values obtained with different assay methods or kits cannot be used interchangeably. Results cannot be interpreted as absolute evidence of the presence or absence of malignant disease. Blood BLOOD SPECIMEN / Unknown 06/16/2019 11:19 AM ASSISTANT FAMILY TEACHER 06/16/2019 Narrative Resulting Agency Comment Lab Testing performed at: [facility] [id number] Mingo Wilson MD LAB - CHEMISTRY ORD ERABLES [facility] INSURANCE BILL [address] [place] [address] * US TRANSVAGINAL NON OB (04/16/2019 9:07 AM ASSISTANT FAMILY TEACHER) Only the most recent of3 resultswithin the time period is included. Anatomical Region Laterality Modality Abdomen Ultrasound Narrative 04/16/2019 9:07 AM ASSISTANT FAMILY TEACHER Mingo Wilson MD 04/16/2019 9:48 AM [facility] [employer] TRAFFIC CONTROL SUPERVISOR PELVIC ULTRASOUND Pt. Name: Wendy Lockwood : 1955 Exam Date: 04/16/2019 LMP: No LMP recorded. (Menstrual status: Menopause). BMI: 23.19 kg/m2 Referring Physician: Ajay Wilson Reason for Scan: Ovarian masses Transabdominal: No Transvaginal: Yes Uterine orientation: Normal Uterine measurements: Length 5.94 cm. Width 3.97 cm. Height 2.37 cm. Volume 29.263 cc Endometrial thickness: 1.42 mm Left Ovary: Length 2.45 cm. Width 1.31 cm. Height 1.85 cm. Volume 3.109 cc Right Ovary: Length 3.45 cm. Width 2.24 cm. Height 2.28 cm. Volume 9.226 cc Cul de Sac: Negative for free fluid CPT: 62511 Protective Services Officer comments: Left ovarian anechoic spot, 0.2cm. Right ovarian anechoic mass, 2.1cm Color doppler used. Physician Interpretation: The uterus is seen and is anteverted normal in size and shape. The EC is seen and is normal in thickness. The left ovary is seen and is normal in size and contains a 0.2 cm anechoic mass. It has not changed in size since it was first seen during her US in January 2019. The right ovary is seen and is normal in size and contains a 2.1 cm anechoic mass. The mass has a benign appearance based on negative doppler color flow. Since her previous US in January 2017 there has been a slight increase in size of the mass from 1.6 to 1.9 cms in June 2018 and then back to 1.8 cms in her US in January 2019. It is now 2.1 cm in the current scan. There is no free fluid present in the pelvis. Protective Services Officer: Kimberly Archuleta RDMS, RT(R) Images will be scanned into the record. Interpreting Physician: Ajay Wilson Procedure Note Kathe Kimberly A - 04/16/2019 9:07 AM CST [facility] [employer] TRAFF[employer] CONTR[employer] SUPERVISOR PELVIC ULTRASOUND Pt. Name: Wendy Lockwood : 1955 Exam Date: 04/16/2019 LMP: No LMP recorded. (Menstrual status: Menopause). BMI: 23.19 kg/m2 Referring Physician: Ajay Wilson Reason for Scan: Ovarian masses Transabdominal: No Transvaginal: Yes Uterine orientation: Normal Uterine measurements: Length 5.94 cm. Width 3.97 cm. Height 2.37 cm. Volume 29.263 cc Endometrial thickness: 1.42 mm Left Ovary: Length 2.45 cm. Width 1.31 cm. Height 1.85 cm. Volume 3.109 cc Right Ovary: Length 3.45 cm. Width 2.24 cm. Height 2.28 cm. Volume 9.226 cc Cul de Sac: Negative for free fluid CPT: 46102 Protective Services Officer comments: Left ovarian anechoic spot, 0.2cm. Right ovarian anechoic mass, 2.1cm Color doppler used. Physician Interpretation: The uterus is seen and is anteverted normalin size and shape. The EC is seen and is normal in thickness. The leftovary is seen and is normal in size and contains a 0.2 cm anechoic mass.It has not changed in size since it was first seen during her US in January2019. The right ovary is seen and is normal in size and contains a 2.1 cmanechoic mass. The mass has a benign appearance based on negative dopplercolor flow. Since her previous US in January 2017 there has been a slightincrease in size of the mass from 1.6 to 1.9 cms in June 2018 and thenback to 1.8 cms in her US in January 2019. It is now 2.1 cm in the currentscan. There is no free fluid present in the pelvis. Protective Services Officer: Kimberly Archuleta RDMS, RT(R) Images will be scanned into the record. Interpreting Physician: Ajay Wilson Mingo Wilson MD ORDERABLES * PAP IG LB (06/11/2018 9:59 AM ASSISTANT FAMILY TEACHER) Diagnosis [facility] INSURANCE BILL Comment: NEGATIVE FOR INTRAEPITHELIAL LESION AND MALIGNANCY. CELLULAR CHANGES ASSOCIATED WITH ATROPHY ARE PRESENT. Specimen Adequacy [facility] INSURANCE BILL Comment: Satisfactory for evaluation. Endocervical and/or squamous metaplastic cells (endocervical component) are present. Clinician Provided ICD10 [facility] INSURANCE BILL Comment: Z01.419 Z12.11 N83.9 Performed by [facility] INSURANCE BILL Comment:Hodan Nicole chnologist (ASCP) Comment . [facility] INSURANCE BILL Note [facility] INSURANCE BILL Comment: The Pap smear is a screening test designed to aid in the detection of premalignant and malignant conditions of the uterine cervix. It is not a diagnostic procedure and should not be used as the sole means of detecting cervical cancer. Both false-positive and false-negative reports do occur. . IGLBP CPT Code Automation [facility] INSURANCE BILL Comment: This liquid based ThinPrep(R) pap test was screened with the use of an image guided system. Pathology/Cytolog y PART OF UTERINE CERVIX / Unknown 06/11/2018 9:59 AM ASSISTANT FAMILY TEACHER 06/11/2018 Narrative [facility] INSURANCE BILL - 06/12/2018 1:12 PM ASSISTANT FAMILY TEACHER No. of containers..01 ThinPrep Vial Resulting Agency Comment [address] [id number] Mingo Wilson MD LAB - PATHOLOGY/CYT OLOGY ORDERABLES [facility] INSURANCE BILL [address] [place] [address] * OCCULT BLOOD FECES 1-3 SCREEN POINT OF CARE (AMB) (06/11/2018) Occult Blood 1 neg Negative Occult Blood 2 Negative Occult Blood 3 Negative Card Lot Number Card Exp Date Yes Developer Lot Number Developer Expiration Date Yes QC Negative Negative QC Positive Stool STOOL SPECIMEN / Unknown 06/11/2018 Mingo Wilson MD LAB - POINT OF CARE ORDERABLES * (ABNORMAL) CULTURE URINE (01/31/2017 9:44 AM CDT) Urine Culture Routine Final report(A) [facility] ACCOUNT BILL Result 1 Escherichia coli(A) [facility] ACCOUNT BILL Comment:Greater than 100,000 colony forming units per mL Antimicrobial Susceptibility [facility] ACCOUNT BILL Comment: S = Susceptible; I = Intermediate; R = Resistant P = Positive; N = Negative MICS are expressed in micrograms per mL Antibiotic RSLT#1 RSLT#2 RSLT#3 RSLT#4 Amoxicillin/Clavulanic Acid S Ampicillin S Cefepime S Ceftriaxone S Cefuroxime S Cephalothin S Ciprofloxacin S Ertapenem S Gentamicin S Imipenem S Levofloxacin S Nitrofurantoin S Piperacillin S Tetracycline S Tobramycin S Trimethoprim/Sulfa S Urine URINE SPECIMEN OBTAINED BY CLEAN CATCH PROCEDURE / Unknown 01/31/2017 9:44 AM CDT 01/31/2017 Narrative Resulting Agency Comment [facility] [address] [facility] [phone] Mingo Wilson MD LAB - MICROBIOLOGY ORDERABLES [facility] ACCOUNT BILL [address] [place] [address] * US TRANSVAG ONLY (01/31/2017 9:30 AM CDT) Only the most recent of2 resultswithin the time period is included. Anatomical Region Laterality Modality Ultrasound Narrative 01/31/2017 9:30 AM CDT Mingo Wilson MD 01/31/2017 9:30 AM [facility] BEAD TRIMMER OARK TRAFFIC CONTROL SUPERVISOR PELVIC ULTRASOUND Pt. Name: Wendy Lockwood : 1955 Exam Date: 01/31/2017 LMP: No LMP recorded. Patient is not currently having periods (Reason: Menopause). Referring Physician: Ajay Wilson Reason for Scan: f/u ov cyst Transabdominal: No Transvaginal: Yes Uterine orientation: Normal Uterine measurements: Length 5.90 cm. Width 4.25 cm. Height 2.48 cm. Volume 32.561 cc Endometrial thickness: 1.37 mm. Left Ovary: Length 1.90 cm. Width 0.83 cm. Height 1.10 cm. Volume 0.908 cc Right Ovary: Length 1.71 cm. Width 2.26 cm. Height 1.99 cm. Volume 4.027 cc Cul de Sac: Negative for free fluid Protective Services Officer comments: Right ovarian anechoic mass, 1.6cm Physician Interpretation: The uterus is seen and is anteverted normal in size and shape. The EC is seen and is normal in thickness. The left ovary is seen and is normal in size and appearance. The right ovary is seen and is normal in size and contains a 1.6 cm anechoic mass that has a benign appearance based on negative doppler color flow. Since her last US in May 2016 there has been no appreciable change in size of the mass. There is no free fluid present in the pelvis. Protective Services Officer: Kimberly Archuleta RDMS, RT(R) Images will be scanned into the record. Interpreting Physician: Ajay Wilson Mingo Wilson MD US ORDERABLES * PAP SMEAR IG HPV HR (05/11/2016 1:05 PM ASSISTANT FAMILY TEACHER) Diagnosis [facility] ACCOUNT BILL Comment: NEGATIVE FOR INTRAEPITHELIAL LESION AND MALIGNANCY. CELLULAR CHANGES ASSOCIATED WITH ATROPHY ARE PRESENT. Specimen Adequacy [facility] ACCOUNT BILL Comment: Satisfactory for evaluation. Endocervical and/or squamous metaplastic cells (endocervical component) are present. Clinician Provided ICD10 [facility] ACCOUNT BILL Comment: Z01.419 N83.9 Z12.11 Performed by [facility] ACCOUNT BILL Comment:Rosalina Welch, Cyto technologist (ASCP) Comment . [facility] ACCOUNT BILL Note [facility] ACCOUNT BILL Comment: The Pap smear is a screening test designed to aid in the detection of premalignant and malignant conditions of the uterine cervix. It is not a diagnostic procedure and should not be used as the sole means of detecting cervical cancer. Both false-positive and false-negative reports do occur. . IGLBP CPT Code Automation [facility] ACCOUNT BILL Comment: This liquid based ThinPrep(R) pap test was screened with the use of an image guided system. Human papillomavirus High Risk Negative Negative [facility] ACCOUNT BILL Comment: This high-risk HPV test detects thirteen high-risk types (16/18/31/33/35/39/45/51/52/56/58/59/68) without differentiation. . Pathology/Cytolog y PART OF UTERINE CERVIX / Unknown 05/11/2016 1:05 PM ASSISTANT FAMILY TEACHER 05/11/2016 Narrative [facility] ACCOUNT BILL - 05/15/2016 5:10 PM ASSISTANT FAMILY TEACHER No. of containers..01 CYTYC Thin Prep Vial Resulting Agency Comment [facility] [address] [id number] Mingo Wilson MD LAB - PATHOLOGY/CYT OLOGY ORDERABLES [facility] ACCOUNT BILL [address] [place] [address] * OCCULT BLOOD FECES 1-3 SCREEN POC (AMB) STL (05/11/2016) Occult Blood 1 neg Negative Occult Blood 2 Negative Occult Blood 3 Negative Card Lot Number z Card Exp Date z Yes Developer Lot Number z Developer Expiration Date z Yes QC Negative z Negative QC Positive z Stool STOOL SPECIMEN / Unknown 05/11/2016 Mingo Wilson MD LAB - POINT OF CARE ORDERABLES * GROSS + MICRO EXAM (08/31/2004 8:17 AM ASSISTANT FAMILY TEACHER) Result CASE NUMBER [id number] Comment: ORDERING PHYSICIAN MINGO WILSON SPECIMEN TYPE Endometrium DATE OF PROCEDURE 08/31/2004 SPECIMEN LABELED Endometrial scrapings PRE-OP DIAGNOSIS Abnormal uterine bleeding GROSS DESCRIPTION GROSS DESCRIPTION The specimen is in a container of formalin labeled endometrial scrapings patient Wendy Lockwood, and consists of smith polypoid pieces of tissue admixed with blood which in aggregate measure 2 x 1 x 1 cm. The specimen is all submitted in a single cassette. Dictated by Nafisa Lehman M.D. MICROSCOPIC DESCRIPTION Sections from the endometrial curettings display proliferative type endometrium. There is neither hyperplasia nor malignancy. DIAGNOSIS Uterus, endometrium, curettings proliferative phase pattern Dictated by Nafisa Lehman M.D. Oil Fire Specialist ADRIANO LOPEZ Electronically Signed By NAFISA LEHMAN MISCELLANEOUS SAMPLES / Unknown 08/31/2004 8:17 AM ASSISTANT FAMILY TEACHER 08/31/2004 1:19 PM ASSISTANT FAMILY TEACHER Historical Provider MD LAB - PATHOLOGY/C YTOLOGY ORDERABLES Care Teams Trim Installer Relationship Specialty Start Date End Date Gopal Julian DO [address] [place] [id number] PCP - General Family Medicine 03/25/24
--- OUTSIDE RECORDS SUMMARY | 2024-08-14 08:47 | XMS_ITS | Clinical Summary ---
Author Organization [facility] Address [address] [facility] [place] [address] Care Team Providers Care Dry Drug Worker Name Role Phone Torstenmayco Gopal SOTO Primary Care Provider [phone] Source Comments [facility],non-owned Affiliates and Associated Physician Practices is amultiple site organization consisting of ambulatory clinics and hospital sitesin [place], [place], [place] and [place]. This disclosure is being madepursuant to the Care Everywhere program and may not contain all information available regarding this patient. Last updated 18.[facility] Allergies Active Allergy Reactions Criticality Noted Date [...] of both knees 11/15/2020 Ovarian mass 05/11/2016 Encounters Date Type Department Care Team Description 06/30/2024 Refill [facility] [address] [facility], [address] [place] [address] Winston Plunkett MD Refill Request 06/08/2024 Telephone [facility] [address] [place] [address], [facility] [address] [place] [address] Winston Plunkett MD Question from Last 3 Months Immunizations Name Administration Dates Next Due INFLUENZA VACCINE, ADJUVANTE D, TRIV. (FLUAD TRIVALENT; 65Y+) (AIIV3) 03/25/2019 PNEUMOCOCCAL PPSV23 03/26/2020 Pneumococcal Pcv13 Conj 04/19/2019 Family History Medical History Relation Name Comments Cancer - Breast Cousin mother's karlos e Breast Cancer after age 50 or unknown Maternal Aunt Alzheimer's Disease Sister Relation Name Status Comments Cousin Maternal Aunt Sister Social History Tobacco Use Types Packs/Day Years [...] 04/01/2024 6:54 AM CDT Plan of Treatment Health Maintenance Due Date Last Done Comments COLON MONITORING 1955 COLONOSCOPY - COLON CA SCREENING 1955 CT COLONOGRAPHY - COLON CA SCREENING 1955 FIT - COLON CA SCREENING 1955 FLEX SIG - COLON CA SCREENING 1955 LIPID TESTING 1955 MEDICARE AWV 12 MONTHS 1955 HEPATITIS C SCREENING 06/14/1971 DTAP/TDAP/TD VACCINES (1 - Tdap) 1972 ZOSTER VACCINE (1 of 2) 2003 BONE DENSITY TESTING 06/24/2020 06/24/2018 (Done Outside Per Report) COLOGUARD (AGES 45-75) - COLON CA SCREENING 01/12/2023 01/13/2020 Colorectal Cancer Screening 01/12/2023 COVID-19 VACCINE (3 - season) 2024 08/06/2020, 07/15/2020 INFLUENZA VACCINE (#1) 2024 , 02/24/2020, 03/25/2019 DEPRESSION SCREENING 06/03/2024 08/26/2023, 03/07/20 23 MAMMOGRAM 12/17/2024 12/18/2023, 12/01, 12/17/2022, Additional history exists Respiratory Syncytial Virus (RSV) Vaccine Pt: or over 60 yrs (1 - 1-dose 75+ series) 2028 PNEUMOCOCCAL VACCINE 50+ Completed 03/26/2020, 04/03 HEPATITIS B VACCINE Aged Out No longe r eligible based on patient's age to complete this topic HIB VACCINE Aged Out No longer eligi ble based on patient's age to complete this topic HPV VACCINE Aged Out No longer eligi ble based on patient's age to complete this topic MENINGOCOCCAL (Group B) VACCINE SHARED DECISION-MAKING Aged Out No longer eligible based on patient's age to complete this topic MENINGOCOCCAL GROUPS A/C/Y/W VACCINE Aged Out No longer eligible based on patient's age to complete this topic Medical Devices Implanted Type Area Power System Engineer Device Identifier Shelf Expiration Date Model / Serial / Lot Cmnt Bone Djo Srg Cblt 40gm Hvisc Strl Implanted:Qty: 1 on 04/06/2021 by Winston Plunkett MD at [facility] Left: Knee [employer] 07/22/2022 [id number] / / [id number] Tray Tib 71mm Kn Cocr I Beam Implanted:Qty: 1 on 04/06/2021 by Winston Plunkett MD at [facility] Left: Knee [employer] 01/19/2031 [id number] / / [id number] Cmpnt Ptlr 28mm 1 Pg Wire Ascnt Arcm Kn Implanted:Qty: 1 on 04/06/2021 by Winston Plunkett MD at [facility] Left: Knee [employer] 02/20/2026 [id number] / / [id number] Cmpnt Fem Kn Lt Cr Cmnt Prm Vngrd Intlk Implanted:Qty: 1 on 04/06/2021 by Winston Plunkett MD at [facility] Left: Knee [employer] 10/24/2030 [id number] / / [id number] Brng [id number] Vngrd Arcm Kn Ant Stab Implanted:Qty: 1 on 04/06/2021 by Winston Plunkett MD at [facility] Left: Knee [employer] 03/10/2026 [id number] / / [id number] Brng [id number] Vngrd Vivacit-E Kn Ant Stab Implanted:Qty: 1 on 04/01/2024 by Winston Plunkett MD at [facility] Right: Knee [employer] 10/05/2028 [id number] / / [id number] Tray Tib 71mm Kn Cocr I Beam Implanted:Qty: 1 on 04/01/2024 by Winston Plunkett MD at [facility] Right: Knee [employer] 01/28/2034 [id number] / / [id number] Cmpnt Fem Kn Rt Cr Cmnt Prm Vngrd Intlk Implanted:Qty: 1 on 04/01/2024 by Winston Plunkett MD at [facility] Right: Knee [employer] 12/31/2033 [id number] / / [id number] Cmpnt Ptlr Std 28mm 3 Pg Kn Ser A Implanted:Qty: 1 on 04/01/2024 by Winston Plunkett MD at [facility] Right: Knee [employer] 02/27/2029 [id number] / / [id number] Cmnt Bone Plc R 40gm Grn Implanted:Qty: 1 on 04/01/2024 by Winston Plunkett MD at [facility] Right: Knee [employer] 06/02/2026 [id number] / / [id number] Advance Directives Documents on File Type Date Recorded Patient Editor Trade Journal Expl anation Adv Directive/Living Will/POA 04/11/2021 11:21 AM * Full Code (Latest Code Status on File) Date Activated Date Inactivated Comments 04/01/2024 12:31 PM 04/02/2024 3:32 PM * Full Code Date Activated Date Inactivated Comments 04/06/2021 12:37 PM 04/07/2021 5:22 PM Care Teams Dry Drug Worker Relationship Specialty Start Date End Date Gopal Julian DO [address] [place] [address] PCP - General Family Medicine 03/25/24
--- OUTSIDE RECORDS SUMMARY | 2024-08-14 08:47 | XMS_ITS | Clinical Summary ---
Author Organization [facility] Address [address] [place] [address] Phone Care Team Providers Care Electrical Equipment Assembler Name Role Phone Luis Leigh MD Primary Care Provider [phone] Allergies Active Allergy Reactions Criticality Noted Date Comments Penicillins Rash,Hives,Itching High 05/11/2016 hives Patient reports itching as a baby Medications hydroCHLOROthiaz nery 25 mg tablet Take 25 mg by mouth. 05/04/2016 Active meloxicam (MOBIC) 15 mg tablet Take 15 mg by mouth daily. 12/03/2022 Active ferrous sulfate 325 mg (65 mg iron) tablet Take 325 mg by mouth daily. Active Active Problems No known active problems Encounters Date Type Department Care Team Description 08/12/2024 11:30 AM CDT Office Visit [facility] Minimally Invasive Gynecology [address] [facility] [address] [place] [address] Daniel Courtney MD Well woman exam with routine gynecological exam (Primary Dx); Ovarian cyst, right 08/08/2024 External Device Data ST[facility] ABSTRACTION Provider, Abstract 08/08/2024 External Device Data STL ABSTRACTION Provider, Abstract 08/05/2024 External Device Data ST[facility] ABSTRACTION Provider, Abstract 07/22/2024 External Device Data STL ABSTRACTION Provider, Abstract 06/25/2024 External Device Data STL ABSTRACTION Provider, Abstract from Last 3 Months Immunizations Immunization Administration Dates Next Due (PFIZER)(12 YR UP) COVID-19 VACCINE - EMERGENCY USE AUTHORIZATION, MRNA, [id number](PF) 30 MCG/0.3 ML IM SUSP 08/06/2020,07/16/2020 (PNEUMOVAX 23)(50 YRS UP) PN EUMOCOCCAL POLYSACCHARIDE (PPV23) 0.5 ML, IM 03/26/2020 (PREVNAR 13)(6 WKS UP) PNEUM OCOCCAL CONJUGATE (PCV13) 0.5 ML, IM 04/19/2019 INFLUENZA VACCINE HIGH DOSE QUADRIVALENT 65 YR UP PF IM 02/24/2020 Influenza Vaccine Tri Adjuvanted 65+ PF IM 03/25 Pneumococcal 13-bryan Conj Vacc Patient Supplied 1 06/19/2018 Pneumococcal Polysaccharide Vacc 23-bryan IM SCHIP 03/26/2020 Family History Medical History Relation Name Comments Heart Disease Father Justin Breast Cancer Maternal Aunt 60-70 Heart Disease Mother Shira Relation Name Status Comments Father Justin Maternal Aunt Mother Shira Social History Tobacco Use Types Packs/Day Years Used Date Smoking Tobacco: Never Smokeless Tobacco: Never Tobacco Cessation:Counseling Given: Not Answered Alcohol Use Standard Drinks/Week Comments Yes 2 (1 standard drink = 0.6 oz pur e alcohol) social Comments No Sex and Gender Information Value Date Recorded Sex Assigned at Not on file Legal Sex Female 11:32 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 Gender Identity Not on file Sexual Orientation Not on file Occupation Industry Job Start Date Job End Date retired Not on file Not on file Not on file Last Filed Vital Signs Vital Sign Reading Time Taken Comments Blood Pressure 100/62 08/12/2024 11:10 AM CDT Pulse 76 08/12/2024 11:10 AM CDT Temperature 36.4 C (97.6 F) 08/12/2024 11:10 AM CDT Respiratory Rate - - Oxygen Saturation 96% 08/12/2024 11:10 AM CDT Inhaled Oxygen Concentration - - Weight 59 kg (130 lb) 08/12/2024 11:10 AM CDT Height 160.5 cm (5' 3.19 ) 08/12/2024 11:10 AM C DT Body Mass Index 22.89 08/12/2024 11:10 AM CDT Plan of Treatment Upcoming Encounters Date Type Department Care Team (Late st Contact Info) Description 09/15/2024 1:00 PM CDT Appointment [facility] [address] [place] [phone] Daniel Courtney MD [address] [place] [phone] Health Maintenance Due Date Last Done Comments DTAP/TDAP/TD VACCINES (1 - Tdap) 1972 Traditional Medicare (ACO) A nnual Wellness Visit 1972 FIT-DNA Q 3 years 1998 FIT/FOBT Q 1 year 1998 Flex Sig/CT Colonography Q 5 years 1998 ZOSTER VACCINE (1 of 2) 2003 INFLUENZA VACCINE (#1) 2024 2, 03/01/2021, 02/24/2020, Additional history exists COVID-19 Vaccine (3 - 2023-2 5 season) 2024 08/06/2020, 07/16/2020 BREAST CANCER SCREENING 12/17/2024 12/18/19 24, 12/17/2022, 05/17/2021, Additional history exists RSV VACCINE (60+ or ) (1 - 1-dose 75+ series) 2028 COLORECTAL SCREENING 01/28/2034 01/29/2024, 06/03/2014 (Previously completed) Colorectal Cancer Screening 01/28/2034 OSTEOPOROSIS SCREENING Completed 06/03/2018 PNEUMOCOCCAL VACCINE 50+ YEARS Completed 1 , 03/26/2020, 04/19/2019, Additional history exists Procedures Procedure Name Priority Date/Time Associated Diagnosis Comments MAMMO 3D STEF SCREEN BILAT W OR WO CAD Routine 12/18/2023 12:07 PM CDT Visit for screening mammogram from Last 3 Months or Most Recently Relevant to Health Maintenance Results * MAMMO SCRN BILAT 3D STEF W OR WO CAD (12/18/2023 12:07 PM CDT) Anatomical Region Laterality Modality Breast Bilateral Mammography 12/18/2023 12:0 7 PM CDT Impressions 12/18/2023 2:42 PM CDT IMPRESSION: Negative bilateral screening mammogram. Recommend routine followup. OVERALL FINAL ASSESSMENT: BI-RADS 1 - Negative DICTATION LOCATION: [facility] Narrative 12/18/2023 2:42 PM CDT BILATERAL SCREENING DIGITAL MAMMOGRAMS WITH COMPUTER ASSISTED DIAGNOSIS WITH TOMOGRAPHY DATE: 12/18/2023 12:07 PM HISTORY: Routine screening. COMPARISON: 12/17/2022 and 05/17/2021 TECHNIQUE: A bilateral screening mammogram was performed. Low-dose full-field digital breast tomosynthesis examination was performed with 2D and 3D acquisitions. Examination is read in conjunction with computer aided detection. BREAST COMPOSITION: Heterogeneously dense, which limits the sensitivity of mammography. FINDINGS: No new masses, suspicious calcifications, or areas of asymmetry or distortion are identified. The images were reviewed using the CAD system. Procedure Note Doreen Mcbride MD - 12/18/2023 BILATERAL SCREENING DIGITAL MAMMOGRAMS WITH COMPUTER ASSISTED DIAGNOSIS WITH TOMOGRAPHY DATE: 12/18/2023 12:07 PM HISTORY: Routine screening. COMPARISON: 12/17/2022 and 05/17/2021 TECHNIQUE: A bilateral screening mammogram was performed. Low-dose full-field digital breast tomosynthesis examination was performed with 2D and 3D acquisitions. Examination is read in conjunction with computer aided detection. BREAST COMPOSITION: Heterogeneously dense, which limits the sensitivity of mammography. FINDINGS: No new masses, suspicious calcifications, or areas of asymmetry or distortion are identified. The images were reviewed using the CAD system. IMPRESSION: Negative bilateral screening mammogram. Recommend routine followup. OVERALL FINAL ASSESSMENT: BI-RADS 1 - Negative DICTATION LOCATION: [facility] Daniel Courtney MD MAMMO ORDERABLES Final Result from Last 3 Months or Most Recently Relevant to Health Maintenance Insurance MEDICARE PART A AND B [facility] [place] [address] Care Teams Electrical Equipment Assembler Relationship Specialty Start Date End Date Luis Leigh MD [address] [place] [address] PCP - General Family Practice 08/12/24
== END 2024-08-13 07:01 | disposition home or self-care (01) ==
LOC: ANHLAB 08-14 08:30
PROVIDERS: PCP Family Medicine; Visit Provider Plastic Surgery
DX: D03.59 Melanoma in situ of other part of trunk (principal)
CPT/HCPCS: 88305

== ENCOUNTER → 2024-10-27 15:35 | Outpatient (REF) | payer MEDICARE, OTHER, SELFPAY ==
--- NOTE | 2024-10-27 15:35 | S_PTH ---
PATIENT: Wendy Lockwood LOC: [facility]NAB #:[id number] AGE/SX: 69/F ROOM: RE10/27/[address]: Tiffani Lee MD : 1955 BED: DIS: SPEC #: [id number] RECD: 10/28/24 06:41 STATUS: MICHAEL REIfeanyi #: [id number] ADILIA: 10/27/24 15:[address]: Tiffani Lee DEPT: [facility] Surgical RECD BY: Magaly Sandoval ENTERED: 10/28/24 06:41 SP TYPE: Surgical OTHR DR: Luis Leigh MD Tissues: A - Melanoma Procedures: Hematoxylin and Eosin Stain Gross and Microscopic Level 4
--- OUTSIDE RECORDS SUMMARY | 2024-10-27 15:37 | XMS_ITS | Continuity of Care Document ---
Author Organization [facility] Address [address] [place] [address] [address] [place] [address] Phone Care Team Providers Care Sales Support Technician Name Role Phone Carrasquillo OD, [place] Unavailable Unavailable Advance Directives Directive Yes / No Effective Date File Name No Information Encounters Encounter Description Practice Location Reason(s) For Visit Diagnoses Date Provider Providers Copied on Encounter [facility], [address] [place] [address] [address], [place], [place], [id number], [place] tel:[phone] [facility] No Information Mar-1 2-200 3 Carrasquillo OD [place]. [address] , [address], [place], [address], [place]. tel:[phone] Family History Family Member Type Diagnosis Age At Onset No Information Payers Payer name Insurance type Covered alliance party ID Authoriza tion(s) No Information Social History [...]
== END ==
LOC: ANHLAB 15:35
PROVIDERS: PCP Family Medicine; Visit Provider Plastic Surgery
DX: L90.5 Scar conditions and fibrosis of skin (principal); L81.4 Other melanin hyperpigmentation; D22.0 Melanocytic nevi of lip; D03.59 Melanoma in situ of other part of trunk
CPT/HCPCS: 88305

== ENCOUNTER 2025-01-01 08:18 | Outpatient (CLI) | payer MEDICARE, OTHER, SELFPAY ==
--- NOTE | ~2025-01-01 | DEXA_ITS ---
Bone Density Report Name: ESTEFANIA CAPONE Age: 69 Sex: Female Ethnicity: White Date of : 1955 Indication: postmenopausal; screening for osteoporosis; Referring Provider: SONIA GIVENS Study: Bone densitometry was performed. Exam Date: January 01, 2025 Accession number: [id number] Bone Density: Region BMD T-score Z-score Classification AP Spine(L1-L4) 0.927 -1.1 1.1 Osteopenia Femoral Neck (Left) 0.651 -1.8 0.1 Osteopenia Total Hip (Left) 0.815 -1.0 0.5 Normal Femoral Neck (Right) 0.587 -2.4 -0.5 Osteopenia Total Hip (Right) 0.757 -1.5 0.1 Osteopenia Total Hip Mean 0.786 -1.3 0.3 Osteopenia World Health Organization criteria for BMD impression classify patients as: Normal (T-score at or above -1.0), Osteopenia (T-score between -1.0 and -2.5), or Osteoporosis (T-score at or below -2.5). 10-year Fracture Risk(1): Major Osteoporotic Fracture 14% Hip Fracture 3.5% Reported Risk Factors: [place] (), Neck BMD=0.587, BMI=23.6 (1) FRAX(R) Version 3.08. Fracture probability calculated for an untreated patient. Fracture probability may be lower if the patient has received treatment. Clinical Information Provided by Patient: Has used the following medications: Vitamin D Patient maximum height was 64 Menopause Age: 43 Drinks caffeinated beverages Onset of menses at age 9 Number of children 1 Impression: The patient has low bone mass, based on the Right Femoral Neck T-score. The patient has an estimated ten-year risk of hip fracture of 3.5% and an estimated ten-year risk of major fracture of 14%, based on the WHO FRAX algorithm. Discussion: BONE DENSITY IS LOW AT ONE OR MORE SKELETAL SITES. THE PATIENT'S BMD AND CLINICAL RISK FACTORS CONTRIBUTE TO THIS PATIENT'S INCREASED RISK OF FRACTURE. This patient's lowest T-score is low at one or more skeletal sites. It meets the World Health Organization's (WHO) criteria for ?low bone mass? (T-score between -1.0 and -2.5). The patient's 10-year risk of hip fracture as calculated by FRAX exceeds the threshold where pharmacological therapy is recommended by the National Osteoporosis Foundation (NOF). However, all treatment decisions require clinical judgment and consideration of individual patient factors, including patient preferences, comorbidities, previous drug use, risk factors not captured in the FRAX model (e.g., frailty, falls, vitamin D deficiency, increased bone turnover, interval significant decline in bone density) and possible under or overestimation of fracture risk by FRAX. The patient should follow a healthful lifestyle (good nutrition with adequate calcium and vitamin D, and appropriate weight-bearing exercise). Follow-Up: Consider a repeat BMD and Vertebral Fracture Assessment (VFA) exam in 2 years or sooner if medically necessary, to reassess this patient's status. Reported by: CATIE on 01/01/2025 8:41:00 AM. Reviewed, dictated and finalized at location A.
== END 2025-01-01 08:19 | disposition home or self-care (01) ==
LOC: MICIMG 08:19
PROVIDERS: PCP Family Medicine; Visit Provider Family Medicine
DX: Z78.0 Asymptomatic menopausal state (principal); M85.88 Other specified disorders of bone density and structure, other site; M85.852 Other specified disorders of bone density and structure, left thigh; M85.851 Other specified disorders of bone density and structure, right thigh
CPT/HCPCS: 77080